=== PATIENT | male | born 1950 | race Caucasian/White ===

== ENCOUNTER 2017-03-22 10:33 | Outpatient (CLI) | payer OTHER, MEDICARE ==
--- NOTE | 2017-03-22 15:44 | RAD ---
CERVICAL SPINE SIX VIEWS: History: Pain. Right sided neck pain radiating to the shoulder and fingers. Comparison: None. FINDINGS: On the AP projection, there are mild degenerative changes of the intraarticular facets. On the open mouth projection, lateral masses of C1 and C2 articulate appropriately. The odontoid process is part ially obscured. On the lateral projection, predental space is normal. In the lateral, neutral and lateral swimmers view, the cervical spine vertebral body heights appear to be maintained. There is mild degenerative disease at C4-5, C5-6, and C6-7. No abnormal alignment. On extension and flexion, no abnormal motion. IMPRESSION: Degenerative change cervical spine. No significant spondylolisthesis. MRI if clinically warranted [facility]te patient's symptoms. POS: [facility]
--- NOTE | 2017-03-22 17:59 | RAD ---
THORACIC SPINE TWO VIEWS: History: 66-year-old male with back pain involving the right side of the neck and shoulder and midback for tw o weeks. FINDINGS: There is some generalized levoscoliosis of the upper lumbar/lower thoracic vertebral column. There a re generalized disc osteophytosis, evidence for spondylosis. No acute compression fracture. No focal bone lesion. IMPRESSION: Thoracic spine spondylosis with minimal levoscoliosis. POS: C
== END 2017-03-22 10:34 | disposition home or self-care (01) ==
LOC: SCSRAD 10:33
PROVIDERS: ATTEND Nurse Practitioner Family
DX: M54.2 Cervicalgia (principal); M54.6 Pain in thoracic spine; M47.892 Other spondylosis, cervical region; M47.894 Other spondylosis, thoracic region
CPT/HCPCS: 72050; 72072

== ENCOUNTER 2017-03-29 09:20 | Outpatient (CLI) | payer OTHER, MEDICARE ==
--- NOTE | 2017-03-29 11:50 | RAD ---
CERVICAL SPINE 4 VIEWS: Date: 03/29/17 HISTORY: M54.2. Neck pain. COMPARISON: Cervical spine radiographs dated 03/22/17. FINDINGS: Mild dextroscoliosis of the cervical spine. This is similar. The open-mouth odontoid view is normal. Moderate degenerative disc space disease from C4-C7. IMPRESSION: Similar appearance from 7 days prior. Degenerative disease cervical spine. POS: [facility]
--- NOTE | 2017-03-29 11:54 | RAD ---
THORACIC SPINE THREE VIEWS: HISTORY: This is a 67-year-old male with neck pain and upper back pain. COMPARISON: 03/22/2017 FINDINGS: Levoscoliosis of the upper lumbar and lower thoracic vertebral column with multilevel disk osteophyto sis of the thoracic vertebral column. No evidence for acute fracture. IMPRESSION: 1. Levoscoliosis of the upper lumbar/lower thoracic vertebral column. 2. Thoracic spondylosis. POS: [facility]
--- NOTE | 2017-03-29 12:59 | MRI ---
MRI CERVICAL SPINE WITHOUT CONTRAST: HISTORY: M54.13 radiculopathy of cervicothoracic spine. COMPARISON: Cervical spine radiograph same day. FINDINGS: The examination is limited due to the patient rotation. Cervical tonsils terminate at the level of t he foramen magnum. The marrow signal of the cervical spine demonstrates some Modic I changes of the inferior end plate of C3, inferior end plate of C4, as well as superior end plate of C5. There is no acute fracture or malalignment of the cervical spine. In the soft tissues, there is mild interspinous edema from the level of C3-C6. Levels are as follows: C2-3: There is mild uncinate process hypertrophy. There is moderate right and mild left neural fora gwendolyn narrowing. The spinal canal is not narrowed. Moderate facet arthropathy on the right. C3-4: Severe degenerative disk space height loss. Circumferential disk bulge. Uncinate process hyp ertrophy. Posterior disk-osteophyte complex. There is moderate to severe bilateral neural foraminal narrowing. There is effacement of the ventral CSF space with the spinal canal measuring approximate ly 6 mm. C4-5: Severe degenerative disk space height loss. The spinal canal is narrowed to approximately 6 m m. Moderate posterior disk-osteophyte complex. There is moderate bilateral facet arthrosis. There is moderate bilateral neural foraminal narrowing. C5-6: Moderate degenerative disk space height loss. There is a posterior disk-osteophyte complex. Mild facet arthrosis. The spinal canal is narrowed to approximately 7 mm. There is moderate to cherry re bilateral neural foraminal narrowing. C6-7: Moderate facet arthrosis. Moderate degenerative disk space height loss. Moderate uncinate pr ocess hypertrophy. The spinal canal is not narrowed. Neural foramina appear to be patent. IMPRESSION: Severely limited exam due to patient rotation. There is a multilevel spondylosis of the cervical spi ne as described above most predominantly from C3-C6 with posterior disk-osteophyte complexes and unci fran process hypertrophy causing narrowing of the spinal canal and neural foramina. POS: [facility]
== END 2017-03-29 09:21 | disposition home or self-care (01) ==
LOC: SCSMRI 09:20
PROVIDERS: ATTEND Anesthesiology Pain Medicine
DX: M54.13 Radiculopathy, cervicothoracic region (principal); M41.85 Other forms of scoliosis, thoracolumbar region; M47.894 Other spondylosis, thoracic region; M47.892 Other spondylosis, cervical region; M50.30 Other cervical disc degeneration, unspecified cervical region
CPT/HCPCS: 72050; 72072; 72141

== ENCOUNTER 2017-03-29 12:03 | Emergency (ER) | payer OTHER, MEDICARE ==
[2017-03-29] MEDS ORDERED: Morphine 4 MG/ML Carpuject ONE (12:33)
[2017-03-29 12:44] LABS: #Eosinphils 0.1 thou/uL (0.0-0.7); #Lymphocytes 1.7 thou/uL (1.20-3.40); #Monocytes 0.6 thou/uL (0.11-0.59); #Neutrophils 3.7 thou/uL (1.40-6.50); %Basophils 0.6 % (0.0-1.0); %Lymphocytes 27.3 % (21.0-51.0); %Monocytes 9.2 % (0.0-10.0); Hematocrit 36.9 % (42.0-52.0); Red Blood Cell (RBC) Count 3.79 mill/uL (4.70-6.10)
[2017-03-29 12:54] LABS: ALT (SGPT) 30 U/L (8-55); AST (SGOT) 27 U/L (5-34); Alkaline Phosphatase 64 U/L (40-150); Anion Gap 14 mmol/L (10-20); BUN (Urea Nitrogen) 16 mg/dL (8.4-25.7); Bilirubin, Total 0.2 mg/dL (0.2-1.2); CK (CPK) 125 U/L (30-200); Calc. Creatinine Clearance 0 mL/min (70-130); Carbon Dioxide 24 mmol/L (23-31); Chloride 104 mmol/L (98-107); Estimated GFR-MDRD Greater than 90; Globulin 3.5 g/dL (2.4-3.5); Lipase 22 U/L (8-78); Protein, Total 7.4 g/dL (5.8-8.1)
[2017-03-29 12:57] LABS: Troponin I 0.023 ng/mL (< 0.028)
[2017-03-29] MEDS ORDERED: Dexamethasone 10 MG/ML VIAL ONE (13:02)
--- NOTE | 2017-03-29 13:20 | RAD ---
AP VIEW CHEST: HISTORY: Right-sided chest pain. FINDINGS: AP view chest is obtained. The lungs are well aerated. No evidence of active intrathoracic disease is seen. No evidence of eff usion, pneumonia, or pneumothorax is seen. IMPRESSION: Unremarkable anterior-posterior view chest. POS: C
== END 2017-03-29 13:14 | disposition home or self-care (01) ==
LOC: SCSER 12:03
DX: M54.12 Radiculopathy, cervical region (principal); Z86.73 Personal history of transient ischemic attack (TIA), and cerebral infarction without residual deficits
CPT/HCPCS: 36415; 71010; 72050; 72072; 72141; 80053; 82553; 83690; 84484; 85025; 93005; 96374; 96375; 96376; J1100; J2270

== ENCOUNTER 2020-12-26 06:14 | Inpatient (IN) | payer OTHER, MEDICARE ==
[2020-12-26 06:39] LABS: #Lymphocytes 2.2 thou/uL (1.20-3.40); #Monocytes 0.5 thou/uL (0.11-0.59); #Neutrophils 4.5 thou/uL (1.40-6.50); %Basophils 0.1 % (0.0-1.0); %Eosinophils 0.1 % (0.0-10.0); %Lymphocytes 30.7 % (21.0-51.0); %Monocytes 7.4 % (0.0-10.0); %Neutrophils 61.8 % (42.0-75.0); Hemoglobin 15.2 g/dL (14.0-18.0); Mean Corpuscular Hemoglobin 34.2 pg (27.0-31.0); Mean Corpuscular Volume 97.8 fL (78.0-98.0); Mean Platelet Volume 8.9 fL (7.4-10.4); Platelet Count 160 thou/uL (130-400); RBC Distribution Width 11.3 % (11.5-14.5); Red Blood Cell (RBC) Count 4.44 mill/uL (4.70-6.10); White Blood Cell (WBC) Count 7.3 thou/uL (4.8-10.8)
[2020-12-26 07:01] LABS: ALT (SGPT) 43 U/L (8-55); AST (SGOT) 66 U/L (5-34); Albumin 3.7 g/dL (3.4-4.8); Alkaline Phosphatase 47 U/L (40-110); Anion Gap 14 mmol/L (10-20); BUN (Urea Nitrogen) 21 mg/dL (8.4-25.7); Bilirubin, Total 0.6 mg/dL (0.2-1.2); Calc. Creatinine Clearance 0 mL/min (70-130); Calcium 8.4 mg/dL (7.8-10.44); Carbon Dioxide 25 mmol/L (23-31); Chloride 96 mmol/L (98-107); Globulin 4.3 g/dL (2.4-3.5); Glucose 135 mg/dL (80-115); Potassium 4.2 mmol/L (3.5-5.1); Sodium 131 mmol/L (136-145)
[2020-12-26] MEDS ORDERED: Ondansetron PF 4 MG/2 ML Vial ONE (07:11)
[2020-12-26] MEDS ORDERED: Acetaminophen 500 MG TAB ONE (07:12)
[2020-12-26 07:48] LABS: Lipase 23 U/L (8-78); Magnesium 1.9 mg/dL (1.6-2.6)
[2020-12-26] MEDS ORDERED: Enoxaparin Sodium 40 MG/0.4 ML SYRINGE SC SCH (11:45)
[2020-12-26] MEDS: Sodium Chloride 0.9% 1,000 ML IV SCH (12:28)
[2020-12-26] MEDS: Acetaminophen 325 MG TAB PO PRN (17:53)
[2020-12-26] MEDS: Divalproex Sodium DR 500 MG TAB PO SCH (21:20)
[2020-12-27] MEDS: Benzonatate 100 MG CAP PO PRN (00:10)
[2020-12-27] MEDS: Acetaminophen 325 MG TAB PO PRN ×3 (00:10→23:24)
[2020-12-27] MEDS: Sodium Chloride 0.9% 1,000 ML IV SCH ×2 (03:31→16:36)
[2020-12-27 04:52] LABS: #Lymphocytes 1.7 thou/uL (1.20-3.40); #Monocytes 0.3 thou/uL (0.11-0.59); #Neutrophils 1.9 thou/uL (1.40-6.50); %Basophils 0.7 % (0.0-1.0); %Eosinophils 0.1 % (0.0-10.0); %Lymphocytes 43.1 % (21.0-51.0); %Monocytes 6.6 % (0.0-10.0); %Neutrophils 49.6 % (42.0-75.0); Hemoglobin 13.4 g/dL (14.0-18.0); Mean Corpuscular HGB CONC 35.4 g/dL (32.0-36.0); Mean Corpuscular Hemoglobin 34.9 pg (27.0-31.0); Mean Corpuscular Volume 98.3 fL (78.0-98.0); Platelet Count 126 thou/uL (130-400); RBC Distribution Width 11.2 % (11.5-14.5); Red Blood Cell (RBC) Count 3.83 mill/uL (4.70-6.10); White Blood Cell (WBC) Count 3.9 thou/uL (4.8-10.8)
[2020-12-27 05:28] LABS: Anion Gap 11 mmol/L (10-20); BUN (Urea Nitrogen) 13 mg/dL (8.4-25.7); Calc. Creatinine Clearance 135 mL/min (70-130); Calcium 7.5 mg/dL (7.8-10.44); Carbon Dioxide 24 mmol/L (23-31); Chloride 101 mmol/L (98-107); Glucose 94 mg/dL (80-115); Potassium 3.8 mmol/L (3.5-5.1); Sodium 132 mmol/L (136-145)
[2020-12-27] MEDS: Enoxaparin Sodium 40 MG/0.4 ML SYRINGE SC SCH (09:59)
[2020-12-27] MEDS: Timolol 0.5% Ophth Soln 5 ml Bottle EA EYE SCH (10:00)
[2020-12-27] MEDS: Divalproex Sodium DR 500 MG TAB PO SCH ×2 (10:00→21:41)
[2020-12-27] MEDS: Clopidogrel Bisulfate 75 MG TAB PO SCH (10:01)
[2020-12-27] MEDS: Loperamide HCl 2 MG CAP PO PRN (21:40)
[2020-12-28] MEDS: Sodium Chloride 0.9% 1,000 ML IV SCH ×2 (06:41→15:59)
[2020-12-28] MEDS: Clopidogrel Bisulfate 75 MG TAB PO SCH (08:47)
[2020-12-28] MEDS: Enoxaparin Sodium 40 MG/0.4 ML SYRINGE SC SCH (08:47)
[2020-12-28] MEDS: Divalproex Sodium DR 500 MG TAB PO SCH ×2 (08:47→20:04)
[2020-12-28] MEDS: Timolol 0.5% Ophth Soln 5 ml Bottle EA EYE SCH (08:48)
[2020-12-28] MEDS: Acetaminophen 325 MG TAB PO PRN ×3 (08:56→20:34)
[2020-12-28] MEDS ORDERED: Zinc Sulfate 220 MG CAP PO SCH (11:45)
[2020-12-28] MEDS ORDERED: Ascorbic Acid 500 mg Chewable Tablet PO SCH (11:45)
[2020-12-28] MEDS: hydrALAZINE 20 MG/ML VIAL SLOW IVP PRN (16:00)
[2020-12-28] MEDS ORDERED: Ketorolac Tromethamine 30 MG/ML VIAL IVP PRN (17:27)
[2020-12-28] MEDS: Benzonatate 100 MG CAP PO PRN (20:04)
[2020-12-28] MEDS: Cholecalciferol 1,000 UNITS (25 MCG) TAB PO SCH (20:04)
[2020-12-29] MEDS: Acetaminophen 325 MG TAB PO PRN ×2 (04:02→12:37)
[2020-12-29] MEDS: Benzonatate 100 MG CAP PO PRN (04:03)
[2020-12-29] MEDS: hydrALAZINE 20 MG/ML VIAL SLOW IVP PRN ×2 (04:04→12:37)
[2020-12-29] MEDS: Zinc Sulfate 220 MG CAP PO SCH (09:14)
[2020-12-29] MEDS: Clopidogrel Bisulfate 75 MG TAB PO SCH (09:14)
[2020-12-29] MEDS: Ascorbic Acid 500 mg Chewable Tablet PO SCH (09:14)
[2020-12-29] MEDS: Divalproex Sodium DR 500 MG TAB PO SCH ×2 (09:14→20:32)
[2020-12-29] MEDS: Sodium Chloride 0.9% 1,000 ML IV SCH ×2 (09:24→22:28)
[2020-12-29] MEDS: Timolol 0.5% Ophth Soln 5 ml Bottle EA EYE SCH (09:44)
[2020-12-29] MEDS: Enoxaparin Sodium 40 MG/0.4 ML SYRINGE SC SCH ×2 (10:22→20:31)
[2020-12-29] MEDS: Loperamide HCl 2 MG CAP PO PRN (12:37)
[2020-12-29] MEDS ORDERED: Ivermectin 3 MG TAB PO SCH (16:45)
[2020-12-29] MEDS ORDERED: REMDESIVIR 200 MG in Sodium Chloride 0.9% 250 ML 210 ML IV SCH (18:00)
[2020-12-29] MEDS: Dexamethasone 10 MG/ML VIAL SLOW IVP SCH (20:32)
[2020-12-29] MEDS: Cholecalciferol 1,000 UNITS (25 MCG) TAB PO SCH (20:32)
[2020-12-29] MEDS: Colchicine 0.6 MG TAB PO SCH (20:32)
[2020-12-30] MEDS: Timolol 0.5% Ophth Soln 5 ml Bottle EA EYE SCH (08:50)
[2020-12-30] MEDS: Zinc Sulfate 220 MG CAP PO SCH (08:50)
[2020-12-30] MEDS: Divalproex Sodium DR 500 MG TAB PO SCH ×2 (08:50→22:00)
[2020-12-30] MEDS: Ivermectin 3 MG TAB PO SCH (08:50)
[2020-12-30] MEDS: Ascorbic Acid 500 mg Chewable Tablet PO SCH (08:50)
[2020-12-30] MEDS: Enoxaparin Sodium 40 MG/0.4 ML SYRINGE SC SCH ×2 (08:50→22:02)
[2020-12-30] MEDS: Clopidogrel Bisulfate 75 MG TAB PO SCH (08:50)
[2020-12-30] MEDS: Dexamethasone 10 MG/ML VIAL SLOW IVP SCH ×2 (08:51→22:01)
[2020-12-30] MEDS: Colchicine 0.6 MG TAB PO SCH ×2 (08:57→22:00)
[2020-12-30] MEDS: Sodium Chloride 0.9% 1,000 ML IV SCH (11:54)
[2020-12-30] MEDS ORDERED: Digoxin 0.5 MG/2 ML AMP SLOW IVP SCH (15:00)
[2020-12-30] MEDS: cefTRIAXone\\ROCEPHIN 2 GM in Sodium Chloride 0.9% 100 ML IVPB SCH (15:09)
[2020-12-30] MEDS: REMDESIVIR 100 MG in Sodium Chloride 0.9% 250 ML 230 ML IV SCH (16:43)
[2020-12-30] MEDS: Diltiazem 125 MG in Sodium Chloride 0.9% 100 ML IVPB SCH (17:29)
[2020-12-30] MEDS: Cholecalciferol 1,000 UNITS (25 MCG) TAB PO SCH (22:00)
[2020-12-31] MEDS: Sodium Chloride 0.9% 1,000 ML IV SCH ×4 (04:07→20:58)
[2020-12-31] MEDS: Diltiazem 125 MG in Sodium Chloride 0.9% 100 ML IVPB SCH (05:34)
[2020-12-31] MEDS: Divalproex Sodium DR 500 MG TAB PO SCH ×2 (09:05→20:51)
[2020-12-31] MEDS: Clopidogrel Bisulfate 75 MG TAB PO SCH (09:05)
[2020-12-31] MEDS: Ivermectin 3 MG TAB PO SCH (09:05)
[2020-12-31] MEDS: Zinc Sulfate 220 MG CAP PO SCH (09:05)
[2020-12-31] MEDS: Enoxaparin Sodium 40 MG/0.4 ML SYRINGE SC SCH ×2 (09:06→20:50)
[2020-12-31] MEDS: Timolol 0.5% Ophth Soln 5 ml Bottle EA EYE SCH (09:06)
[2020-12-31] MEDS: Dexamethasone 10 MG/ML VIAL SLOW IVP SCH ×2 (09:06→20:51)
[2020-12-31] MEDS: Ascorbic Acid 500 mg Chewable Tablet PO SCH (09:09)
[2020-12-31] MEDS: Colchicine 0.6 MG TAB PO SCH ×2 (09:09→20:51)
[2020-12-31] MEDS: Benzonatate 100 MG CAP PO PRN (09:11)
[2020-12-31] MEDS: cefTRIAXone\\ROCEPHIN 2 GM in Sodium Chloride 0.9% 100 ML IVPB SCH (14:09)
[2020-12-31] MEDS ORDERED: Cepastat Lozenges 1 LOZ PO PRN (15:31)
[2020-12-31] MEDS: REMDESIVIR 100 MG in Sodium Chloride 0.9% 250 ML 230 ML IV SCH (17:08)
[2020-12-31] MEDS: Cholecalciferol 1,000 UNITS (25 MCG) TAB PO SCH (20:51)
[2021-01-01] MEDS: Divalproex Sodium DR 500 MG TAB PO SCH ×2 (09:03→20:01)
[2021-01-01] MEDS: Ascorbic Acid 500 mg Chewable Tablet PO SCH (09:03)
[2021-01-01] MEDS: Timolol 0.5% Ophth Soln 5 ml Bottle EA EYE SCH (09:03)
[2021-01-01] MEDS: Zinc Sulfate 220 MG CAP PO SCH (09:03)
[2021-01-01] MEDS: Enoxaparin Sodium 40 MG/0.4 ML SYRINGE SC SCH ×2 (09:03→20:01)
[2021-01-01] MEDS: Clopidogrel Bisulfate 75 MG TAB PO SCH (09:03)
[2021-01-01] MEDS: Ivermectin 3 MG TAB PO SCH (09:05)
[2021-01-01] MEDS: Dexamethasone 10 MG/ML VIAL SLOW IVP SCH ×2 (09:05→20:00)
[2021-01-01] MEDS: hydrALAZINE 20 MG/ML VIAL SLOW IVP PRN ×2 (09:08→14:41)
[2021-01-01] MEDS: Colchicine 0.6 MG TAB PO SCH ×2 (09:11→20:00)
[2021-01-01] MEDS: cefTRIAXone\\ROCEPHIN 2 GM in Sodium Chloride 0.9% 100 ML IVPB SCH (14:40)
[2021-01-01] MEDS: REMDESIVIR 100 MG in Sodium Chloride 0.9% 250 ML 230 ML IV SCH (17:28)
[2021-01-01] MEDS: Sodium Chloride 0.9% 1,000 ML IV SCH (17:29)
[2021-01-01] MEDS: Cholecalciferol 1,000 UNITS (25 MCG) TAB PO SCH (20:01)
[2021-01-02] MEDS: Sodium Chloride 0.9% 1,000 ML IV SCH ×2 (00:57→14:19)
[2021-01-02] MEDS: hydrALAZINE 20 MG/ML VIAL SLOW IVP PRN ×2 (05:48→11:35)
[2021-01-02 05:57] LABS: ALT (SGPT) 34 U/L (8-55); AST (SGOT) 60 U/L (5-34); Albumin 2.4 g/dL (3.4-4.8); Alkaline Phosphatase 42 U/L (40-110); Anion Gap 12 mmol/L (10-20); BUN (Urea Nitrogen) 14 mg/dL (8.4-25.7); Bilirubin, Total 0.7 mg/dL (0.2-1.2); Calc. Creatinine Clearance 150 mL/min (70-130); Calcium 7.8 mg/dL (7.8-10.44); Carbon Dioxide 22 mmol/L (23-31); Chloride 109 mmol/L (98-107); Globulin 3.8 g/dL (2.4-3.5); Glucose 122 mg/dL (80-115); Potassium 3.3 mmol/L (3.5-5.1); Protein, Total 6.2 g/dL (5.8-8.1); Sodium 140 mmol/L (136-145)
[2021-01-02] MEDS: Enoxaparin Sodium 40 MG/0.4 ML SYRINGE SC SCH ×2 (09:07→21:11)
[2021-01-02] MEDS: Divalproex Sodium DR 500 MG TAB PO SCH ×2 (09:08→21:11)
[2021-01-02] MEDS: Clopidogrel Bisulfate 75 MG TAB PO SCH (09:08)
[2021-01-02] MEDS: Zinc Sulfate 220 MG CAP PO SCH (09:08)
[2021-01-02] MEDS: Ascorbic Acid 500 mg Chewable Tablet PO SCH (10:28)
[2021-01-02] MEDS: Dexamethasone 10 MG/ML VIAL SLOW IVP SCH ×2 (10:28→21:11)
[2021-01-02] MEDS: Timolol 0.5% Ophth Soln 5 ml Bottle EA EYE SCH (10:28)
[2021-01-02] MEDS: Ivermectin 3 MG TAB PO SCH (10:29)
[2021-01-02] MEDS: Colchicine 0.6 MG TAB PO SCH ×2 (10:52→21:11)
[2021-01-02] MEDS: cefTRIAXone\\ROCEPHIN 2 GM in Sodium Chloride 0.9% 100 ML IVPB SCH (14:41)
[2021-01-02] MEDS: REMDESIVIR 100 MG in Sodium Chloride 0.9% 250 ML 230 ML IV SCH (17:08)
[2021-01-02] MEDS: Cholecalciferol 1,000 UNITS (25 MCG) TAB PO SCH (21:11)
[2021-01-02] MEDS: Loperamide HCl 2 MG CAP PO PRN (21:11)
[2021-01-03] MEDS: Sodium Chloride 0.9% 1,000 ML IV SCH ×2 (03:00→16:18)
[2021-01-03 04:35] LABS: #Eosinphils 0.1 thou/uL (0.0-0.7); #Lymphocytes 1.2 thou/uL (1.20-3.40); #Monocytes 0.5 thou/uL (0.11-0.59); #Neutrophils 4.6 thou/uL (1.40-6.50); %Basophils 0.1 % (0.0-1.0); %Eosinophils 1.5 % (0.0-10.0); %Lymphocytes 18.8 % (21.0-51.0); %Monocytes 7.3 % (0.0-10.0); %Neutrophils 72.2 % (42.0-75.0); Hemoglobin 12.5 g/dL (14.0-18.0); Mean Corpuscular HGB CONC 34.8 g/dL (32.0-36.0); Mean Corpuscular Volume 97.8 fL (78.0-98.0); Mean Platelet Volume 8.1 fL (7.4-10.4); Platelet Count 316 thou/uL (130-400); RBC Distribution Width 12.1 % (11.5-14.5); Red Blood Cell (RBC) Count 3.66 mill/uL (4.70-6.10); White Blood Cell (WBC) Count 6.4 thou/uL (4.8-10.8)
[2021-01-03 04:55] LABS: ALT (SGPT) 36 U/L (8-55); AST (SGOT) 56 U/L (5-34); Albumin 2.6 g/dL (3.4-4.8); Alkaline Phosphatase 51 U/L (40-110); Anion Gap 11 mmol/L (10-20); BUN (Urea Nitrogen) 11 mg/dL (8.4-25.7); Bilirubin, Total 0.8 mg/dL (0.2-1.2); CRP (Inflammatory) 5.86 mg/dL (= or < 0.5); Calc. Creatinine Clearance 153 mL/min (70-130); Calcium 7.8 mg/dL (7.8-10.44); Carbon Dioxide 26 mmol/L (23-31); Chloride 106 mmol/L (98-107); Globulin 3.7 g/dL (2.4-3.5); Glucose 130 mg/dL (80-115); Protein, Total 6.3 g/dL (5.8-8.1); Sodium 140 mmol/L (136-145)
[2021-01-03] MEDS: hydrALAZINE 20 MG/ML VIAL SLOW IVP PRN (05:26)
[2021-01-03] MEDS ORDERED: Electrolyte Replacement Protocol 1 EACH FS PRN (09:00)
[2021-01-03] MEDS ORDERED: Potassium Chloride 20 MEQ TAB PO SCH ×2 (09:00→17:00)
[2021-01-03] MEDS: Ascorbic Acid 500 mg Chewable Tablet PO SCH (09:33)
[2021-01-03] MEDS: Clopidogrel Bisulfate 75 MG TAB PO SCH (09:34)
[2021-01-03] MEDS: Enoxaparin Sodium 40 MG/0.4 ML SYRINGE SC SCH ×2 (09:34→21:02)
[2021-01-03] MEDS: Divalproex Sodium DR 500 MG TAB PO SCH ×2 (09:34→21:02)
[2021-01-03] MEDS: Dexamethasone 10 MG/ML VIAL SLOW IVP SCH (09:34)
[2021-01-03] MEDS: Timolol 0.5% Ophth Soln 5 ml Bottle EA EYE SCH (09:35)
[2021-01-03] MEDS: Ivermectin 3 MG TAB PO SCH (09:35)
[2021-01-03 09:36] LABS: Magnesium 1.9 mg/dL (1.6-2.6)
[2021-01-03] MEDS: Zinc Sulfate 220 MG CAP PO SCH (09:36)
[2021-01-03] MEDS: Colchicine 0.6 MG TAB PO SCH ×2 (09:39→21:02)
[2021-01-03] MEDS ORDERED: Magnesium 2 GM/50 ML 2 GM in Premix Bag 1 BAG IVPB SCH (10:15)
[2021-01-03] MEDS: cefTRIAXone\\ROCEPHIN 2 GM in Sodium Chloride 0.9% 100 ML IVPB SCH (15:19)
[2021-01-03] MEDS ORDERED: Albuterol 200 PUFF (6.7GM INHALER) INH PRN (17:26)
[2021-01-03] MEDS: Albuterol 200 PUFF (6.7GM INHALER) INH SCH ×2 (18:58→21:02)
[2021-01-03] MEDS: Cholecalciferol 1,000 UNITS (25 MCG) TAB PO SCH (21:02)
[2021-01-04] MEDS: Albuterol 200 PUFF (6.7GM INHALER) INH SCH ×6 (02:24→21:36)
[2021-01-04 05:49] LABS: #Eosinphils 0.1 thou/uL (0.0-0.7); #Lymphocytes 2.5 thou/uL (1.20-3.40); #Monocytes 0.7 thou/uL (0.11-0.59); %Basophils 0.2 % (0.0-1.0); %Eosinophils 1.5 % (0.0-10.0); %Lymphocytes 29.6 % (21.0-51.0); %Monocytes 8.4 % (0.0-10.0); %Neutrophils 60.4 % (42.0-75.0); Hemoglobin 13.6 g/dL (14.0-18.0); Mean Corpuscular HGB CONC 34.7 g/dL (32.0-36.0); Mean Corpuscular Hemoglobin 34.2 pg (27.0-31.0); Mean Corpuscular Volume 98.5 fL (78.0-98.0); Mean Platelet Volume 8.4 fL (7.4-10.4); Platelet Count 331 thou/uL (130-400); RBC Distribution Width 12.3 % (11.5-14.5); Red Blood Cell (RBC) Count 3.97 mill/uL (4.70-6.10); White Blood Cell (WBC) Count 8.3 thou/uL (4.8-10.8)
[2021-01-04 06:03] LABS: ALT (SGPT) 39 U/L (8-55); AST (SGOT) 65 U/L (5-34); Albumin 2.6 g/dL (3.4-4.8); Alkaline Phosphatase 58 U/L (40-110); Anion Gap 13 mmol/L (10-20); BUN (Urea Nitrogen) 12 mg/dL (8.4-25.7); Bilirubin, Total 0.9 mg/dL (0.2-1.2); Calc. Creatinine Clearance 153 mL/min (70-130); Calcium 7.9 mg/dL (7.8-10.44); Carbon Dioxide 23 mmol/L (23-31); Chloride 103 mmol/L (98-107); Globulin 4.1 g/dL (2.4-3.5); Glucose 105 mg/dL (80-115); Magnesium 1.7 mg/dL (1.6-2.6); Potassium 3.3 mmol/L (3.5-5.1); Protein, Total 6.7 g/dL (5.8-8.1); Sodium 136 mmol/L (136-145)
[2021-01-04] MEDS ORDERED: Magnesium 2 GM/50 ML 2 GM in Premix Bag 1 BAG IVPB SCH (06:30)
[2021-01-04] MEDS ORDERED: Potassium Chloride 20 MEQ TAB PO SCH (06:45)
[2021-01-04] MEDS: Ascorbic Acid 500 mg Chewable Tablet PO SCH (09:04)
[2021-01-04] MEDS: Divalproex Sodium DR 500 MG TAB PO SCH ×2 (09:04→21:27)
[2021-01-04] MEDS: Dexamethasone 10 MG/ML VIAL SLOW IVP SCH (09:05)
[2021-01-04] MEDS: Colchicine 0.6 MG TAB PO SCH ×2 (09:05→21:28)
[2021-01-04] MEDS: Zinc Sulfate 220 MG CAP PO SCH (09:05)
[2021-01-04] MEDS: Clopidogrel Bisulfate 75 MG TAB PO SCH (09:05)
[2021-01-04] MEDS: Ivermectin 3 MG TAB PO SCH (09:06)
[2021-01-04] MEDS: Enoxaparin Sodium 40 MG/0.4 ML SYRINGE SC SCH ×2 (09:06→22:01)
[2021-01-04] MEDS: Timolol 0.5% Ophth Soln 5 ml Bottle EA EYE SCH (09:07)
[2021-01-04] MEDS: cefTRIAXone\\ROCEPHIN 2 GM in Sodium Chloride 0.9% 100 ML IVPB SCH (14:44)
[2021-01-04] MEDS: Cholecalciferol 1,000 UNITS (25 MCG) TAB PO SCH (21:28)
[2021-01-04] MEDS: Doxycycline 100 MG CAP PO SCH (21:28)
[2021-01-05 05:35] LABS: #Eosinphils 0.1 thou/uL (0.0-0.7); #Lymphocytes 2.5 thou/uL (1.20-3.40); #Monocytes 0.7 thou/uL (0.11-0.59); #Neutrophils 4.3 thou/uL (1.40-6.50); %Basophils 0.4 % (0.0-1.0); %Eosinophils 0.9 % (0.0-10.0); %Lymphocytes 33.4 % (21.0-51.0); %Monocytes 9.2 % (0.0-10.0); %Neutrophils 56.1 % (42.0-75.0); Hemoglobin 12.7 g/dL (14.0-18.0); Mean Corpuscular Hemoglobin 34.6 pg (27.0-31.0); Mean Corpuscular Volume 98.7 fL (78.0-98.0); Mean Platelet Volume 8.2 fL (7.4-10.4); Platelet Count 324 thou/uL (130-400); RBC Distribution Width 12.4 % (11.5-14.5); Red Blood Cell (RBC) Count 3.68 mill/uL (4.70-6.10); White Blood Cell (WBC) Count 7.6 thou/uL (4.8-10.8)
[2021-01-05 05:57] LABS: CRP (Inflammatory) 5.94 mg/dL (= or < 0.5); Magnesium 2.1 mg/dL (1.6-2.6)
[2021-01-05 06:02] LABS: ALT (SGPT) 34 U/L (8-55); AST (SGOT) 44 U/L (5-34); Albumin 2.4 g/dL (3.4-4.8); Alkaline Phosphatase 57 U/L (40-110); Anion Gap 7 mmol/L (10-20); BUN (Urea Nitrogen) 19 mg/dL (8.4-25.7); Bilirubin, Total 0.7 mg/dL (0.2-1.2); Calc. Creatinine Clearance 153 mL/min (70-130); Calcium 7.9 mg/dL (7.8-10.44); Carbon Dioxide 28 mmol/L (23-31); Chloride 105 mmol/L (98-107); Globulin 3.7 g/dL (2.4-3.5); Glucose 102 mg/dL (80-115); Potassium 3.2 mmol/L (3.5-5.1); Protein, Total 6.1 g/dL (5.8-8.1); Sodium 137 mmol/L (136-145)
[2021-01-05 06:05] LABS: Phosphorus 4.2 mg/dL (2.3-4.7)
[2021-01-05] MEDS ORDERED: Potassium Chloride 20 MEQ TAB PO SCH (06:30)
[2021-01-05] MEDS: Timolol 0.5% Ophth Soln 5 ml Bottle EA EYE SCH (09:34)
[2021-01-05] MEDS: Albuterol 200 PUFF (6.7GM INHALER) INH SCH ×4 (10:27→21:33)
[2021-01-05] MEDS: Enoxaparin Sodium 40 MG/0.4 ML SYRINGE SC SCH ×2 (10:47→21:32)
[2021-01-05] MEDS: Ascorbic Acid 500 mg Chewable Tablet PO SCH (10:47)
[2021-01-05] MEDS: Clopidogrel Bisulfate 75 MG TAB PO SCH (10:47)
[2021-01-05] MEDS: Ivermectin 3 MG TAB PO SCH (10:49)
[2021-01-05] MEDS: Doxycycline 100 MG CAP PO SCH ×2 (10:50→21:32)
[2021-01-05] MEDS: Divalproex Sodium DR 500 MG TAB PO SCH ×2 (10:50→21:32)
[2021-01-05] MEDS: Dexamethasone 10 MG/ML VIAL SLOW IVP SCH (10:56)
[2021-01-05] MEDS: Colchicine 0.6 MG TAB PO SCH (11:20)
[2021-01-05] MEDS: Zinc Sulfate 220 MG CAP PO SCH (18:38)
[2021-01-05] MEDS: hydrALAZINE 20 MG/ML VIAL SLOW IVP PRN (18:44)
[2021-01-05] MEDS: Cholecalciferol 1,000 UNITS (25 MCG) TAB PO SCH (21:32)
[2021-01-06 05:19] LABS: #Eosinphils 0.1 thou/uL (0.0-0.7); #Lymphocytes 2.5 thou/uL (1.20-3.40); #Monocytes 0.7 thou/uL (0.11-0.59); #Neutrophils 4.1 thou/uL (1.40-6.50); %Basophils 0.3 % (0.0-1.0); %Lymphocytes 33.6 % (21.0-51.0); %Monocytes 9.2 % (0.0-10.0); %Neutrophils 55.9 % (42.0-75.0); Hemoglobin 12.7 g/dL (14.0-18.0); Mean Corpuscular HGB CONC 33.9 g/dL (32.0-36.0); Mean Platelet Volume 8.4 fL (7.4-10.4); Platelet Count 347 thou/uL (130-400); RBC Distribution Width 12.7 % (11.5-14.5); Red Blood Cell (RBC) Count 3.75 mill/uL (4.70-6.10); White Blood Cell (WBC) Count 7.4 thou/uL (4.8-10.8)
[2021-01-06 05:34] LABS: Anion Gap 11 mmol/L (10-20); BUN (Urea Nitrogen) 19 mg/dL (8.4-25.7); CRP (Inflammatory) 3.61 mg/dL (= or < 0.5); Calc. Creatinine Clearance 170 mL/min (70-130); Calcium 8.3 mg/dL (7.8-10.44); Carbon Dioxide 26 mmol/L (23-31); Chloride 103 mmol/L (98-107); Glucose 100 mg/dL (80-115); Potassium 3.6 mmol/L (3.5-5.1); Sodium 136 mmol/L (136-145)
[2021-01-06] MEDS: Enoxaparin Sodium 40 MG/0.4 ML SYRINGE SC SCH ×2 (09:27→20:05)
[2021-01-06] MEDS: Clopidogrel Bisulfate 75 MG TAB PO SCH (09:28)
[2021-01-06] MEDS: hydrALAZINE 25 MG TAB PO SCH ×3 (09:28→20:05)
[2021-01-06] MEDS: Ascorbic Acid 500 mg Chewable Tablet PO SCH (09:29)
[2021-01-06] MEDS: Doxycycline 100 MG CAP PO SCH ×2 (09:30→20:05)
[2021-01-06] MEDS: Zinc Sulfate 220 MG CAP PO SCH (09:30)
[2021-01-06] MEDS: Divalproex Sodium DR 500 MG TAB PO SCH ×2 (09:31→20:04)
[2021-01-06] MEDS: Dexamethasone 10 MG/ML VIAL SLOW IVP SCH (09:32)
[2021-01-06] MEDS: Timolol 0.5% Ophth Soln 5 ml Bottle EA EYE SCH (09:33)
[2021-01-06] MEDS: Albuterol 200 PUFF (6.7GM INHALER) INH SCH ×4 (17:00→20:06)
[2021-01-06] MEDS: Cholecalciferol 1,000 UNITS (25 MCG) TAB PO SCH (20:04)
[2021-01-07 05:35] LABS: #Eosinphils 0.1 thou/uL (0.0-0.7); #Lymphocytes 2.3 thou/uL (1.20-3.40); #Monocytes 0.7 thou/uL (0.11-0.59); #Neutrophils 3.4 thou/uL (1.40-6.50); %Basophils 0.4 % (0.0-1.0); %Eosinophils 1.5 % (0.0-10.0); %Lymphocytes 35.2 % (21.0-51.0); %Monocytes 11.1 % (0.0-10.0); %Neutrophils 51.8 % (42.0-75.0); Hemoglobin 12.7 g/dL (14.0-18.0); Mean Corpuscular HGB CONC 34.1 g/dL (32.0-36.0); Mean Corpuscular Hemoglobin 34.3 pg (27.0-31.0); Mean Platelet Volume 8.5 fL (7.4-10.4); Platelet Count 314 thou/uL (130-400); RBC Distribution Width 12.9 % (11.5-14.5); White Blood Cell (WBC) Count 6.6 thou/uL (4.8-10.8)
[2021-01-07 05:55] LABS: Anion Gap 11 mmol/L (10-20); BUN (Urea Nitrogen) 17 mg/dL (8.4-25.7); Calc. Creatinine Clearance 155 mL/min (70-130); Calcium 8.3 mg/dL (7.8-10.44); Carbon Dioxide 27 mmol/L (23-31); Chloride 102 mmol/L (98-107); Glucose 107 mg/dL (80-115); Potassium 3.7 mmol/L (3.5-5.1); Sodium 136 mmol/L (136-145)
[2021-01-07] MEDS ORDERED: Potassium Chloride 20 MEQ TAB PO SCH (08:45)
[2021-01-07] MEDS: Zinc Sulfate 220 MG CAP PO SCH (08:51)
[2021-01-07] MEDS: Clopidogrel Bisulfate 75 MG TAB PO SCH (08:51)
[2021-01-07] MEDS: Doxycycline 100 MG CAP PO SCH ×2 (08:51→20:28)
[2021-01-07] MEDS: Divalproex Sodium DR 500 MG TAB PO SCH ×2 (08:51→20:28)
[2021-01-07] MEDS: Ascorbic Acid 500 mg Chewable Tablet PO SCH (08:51)
[2021-01-07] MEDS: hydrALAZINE 25 MG TAB PO SCH ×3 (08:51→20:28)
[2021-01-07] MEDS: Dexamethasone 10 MG/ML VIAL SLOW IVP SCH (08:52)
[2021-01-07] MEDS: Enoxaparin Sodium 40 MG/0.4 ML SYRINGE SC SCH ×2 (08:52→20:27)
[2021-01-07] MEDS: Albuterol 200 PUFF (6.7GM INHALER) INH SCH ×6 (08:53→20:29)
[2021-01-07] MEDS: Timolol 0.5% Ophth Soln 5 ml Bottle EA EYE SCH (08:54)
[2021-01-07] MEDS: Cholecalciferol 1,000 UNITS (25 MCG) TAB PO SCH (20:28)
[2021-01-08] MEDS: Albuterol 200 PUFF (6.7GM INHALER) INH SCH ×4 (08:18→20:45)
[2021-01-08] MEDS: Timolol 0.5% Ophth Soln 5 ml Bottle EA EYE SCH (08:19)
[2021-01-08] MEDS: Ascorbic Acid 500 mg Chewable Tablet PO SCH (08:20)
[2021-01-08] MEDS: Divalproex Sodium DR 500 MG TAB PO SCH ×2 (08:20→20:45)
[2021-01-08] MEDS: Dexamethasone 10 MG/ML VIAL SLOW IVP SCH (08:20)
[2021-01-08] MEDS: hydrALAZINE 25 MG TAB PO SCH ×3 (08:20→20:45)
[2021-01-08] MEDS: Doxycycline 100 MG CAP PO SCH ×2 (08:20→20:45)
[2021-01-08] MEDS: Zinc Sulfate 220 MG CAP PO SCH (08:20)
[2021-01-08] MEDS: Enoxaparin Sodium 40 MG/0.4 ML SYRINGE SC SCH ×2 (08:21→20:45)
[2021-01-08] MEDS: Clopidogrel Bisulfate 75 MG TAB PO SCH (08:21)
[2021-01-08] MEDS: Cholecalciferol 1,000 UNITS (25 MCG) TAB PO SCH (20:45)
[2021-01-09 04:57] LABS: #Lymphocytes 2.7 thou/uL (1.20-3.40); #Monocytes 0.8 thou/uL (0.11-0.59); #Neutrophils 4.2 thou/uL (1.40-6.50); %Basophils 0.5 % (0.0-1.0); %Eosinophils 0.5 % (0.0-10.0); %Lymphocytes 34.5 % (21.0-51.0); %Monocytes 10.5 % (0.0-10.0); Hemoglobin 12.8 g/dL (14.0-18.0); Mean Corpuscular Hemoglobin 33.4 pg (27.0-31.0); Mean Platelet Volume 8.6 fL (7.4-10.4); Platelet Count 281 thou/uL (130-400); Red Blood Cell (RBC) Count 3.82 mill/uL (4.70-6.10); White Blood Cell (WBC) Count 7.7 thou/uL (4.8-10.8)
[2021-01-09 05:21] LABS: Anion Gap 10 mmol/L (10-20); BUN (Urea Nitrogen) 14 mg/dL (8.4-25.7); CRP (Inflammatory) 0.98 mg/dL (= or < 0.5); Calc. Creatinine Clearance 161 mL/min (70-130); Calcium 8.7 mg/dL (7.8-10.44); Carbon Dioxide 30 mmol/L (23-31); Chloride 101 mmol/L (98-107); Glucose 108 mg/dL (80-115); Potassium 4.4 mmol/L (3.5-5.1); Sodium 137 mmol/L (136-145)
[2021-01-09] MEDS: Ascorbic Acid 500 mg Chewable Tablet PO SCH (07:51)
[2021-01-09] MEDS: Clopidogrel Bisulfate 75 MG TAB PO SCH (07:52)
[2021-01-09] MEDS: Divalproex Sodium DR 500 MG TAB PO SCH ×2 (07:52→20:05)
[2021-01-09] MEDS: Doxycycline 100 MG CAP PO SCH ×2 (07:52→20:06)
[2021-01-09] MEDS: Zinc Sulfate 220 MG CAP PO SCH (07:52)
[2021-01-09] MEDS: Dexamethasone 10 MG/ML VIAL SLOW IVP SCH (07:54)
[2021-01-09] MEDS: Timolol 0.5% Ophth Soln 5 ml Bottle EA EYE SCH (07:54)
[2021-01-09] MEDS: Enoxaparin Sodium 40 MG/0.4 ML SYRINGE SC SCH (07:54)
[2021-01-09] MEDS: hydrALAZINE 25 MG TAB PO SCH ×3 (07:55→20:05)
[2021-01-09] MEDS ORDERED: Enoxaparin Sodium 40 MG/0.4 ML SYRINGE SC SCH ×2 (09:00→21:00)
[2021-01-09] MEDS: Albuterol 200 PUFF (6.7GM INHALER) INH SCH ×3 (09:30→15:00)
[2021-01-09 14:02] VITALS: BMI 31.6
[2021-01-09] MEDS: Cholecalciferol 1,000 UNITS (25 MCG) TAB PO SCH (20:06)
[2021-01-10] MEDS: Albuterol 200 PUFF (6.7GM INHALER) INH SCH ×2 (00:29→00:30)
[2021-01-10] MEDS: hydrALAZINE 25 MG TAB PO SCH ×3 (08:39→21:40)
[2021-01-10] MEDS: Ascorbic Acid 500 mg Chewable Tablet PO SCH (08:39)
[2021-01-10] MEDS: Zinc Sulfate 220 MG CAP PO SCH (08:39)
[2021-01-10] MEDS: Dexamethasone 10 MG/ML VIAL SLOW IVP SCH (08:40)
[2021-01-10] MEDS: Clopidogrel Bisulfate 75 MG TAB PO SCH (08:40)
[2021-01-10] MEDS: Doxycycline 100 MG CAP PO SCH (08:40)
[2021-01-10] MEDS: Divalproex Sodium DR 500 MG TAB PO SCH ×2 (08:40→21:40)
[2021-01-10] MEDS: Timolol 0.5% Ophth Soln 5 ml Bottle EA EYE SCH (08:41)
[2021-01-10] MEDS ORDERED: Enoxaparin Sodium 40 MG/0.4 ML SYRINGE SC SCH (14:45)
[2021-01-10] MEDS: Cholecalciferol 1,000 UNITS (25 MCG) TAB PO SCH (21:40)
[2021-01-11] MEDS: Ascorbic Acid 500 mg Chewable Tablet PO SCH (09:59)
[2021-01-11] MEDS: Divalproex Sodium DR 500 MG TAB PO SCH ×2 (09:59→21:06)
[2021-01-11] MEDS: Clopidogrel Bisulfate 75 MG TAB PO SCH (09:59)
[2021-01-11] MEDS: Zinc Sulfate 220 MG CAP PO SCH (09:59)
[2021-01-11] MEDS: hydrALAZINE 25 MG TAB PO SCH ×3 (10:00→21:06)
[2021-01-11] MEDS: Enoxaparin Sodium 40 MG/0.4 ML SYRINGE SC SCH (10:01)
[2021-01-11] MEDS: Dexamethasone 10 MG/ML VIAL SLOW IVP SCH (10:02)
[2021-01-11] MEDS: Timolol 0.5% Ophth Soln 5 ml Bottle EA EYE SCH (10:02)
[2021-01-11] MEDS: Cholecalciferol 1,000 UNITS (25 MCG) TAB PO SCH (21:06)
[2021-01-12 08:38] LABS: #Lymphocytes 2.9 thou/uL (1.20-3.40); #Monocytes 0.9 thou/uL (0.11-0.59); #Neutrophils 6.1 thou/uL (1.40-6.50); %Basophils 0.2 % (0.0-1.0); %Eosinophils 0.4 % (0.0-10.0); %Lymphocytes 29.3 % (21.0-51.0); Hemoglobin 13.4 g/dL (14.0-18.0); Mean Corpuscular HGB CONC 35.2 g/dL (32.0-36.0); Mean Corpuscular Hemoglobin 35.7 pg (27.0-31.0); Mean Platelet Volume 8.7 fL (7.4-10.4); Platelet Count 276 thou/uL (130-400); RBC Distribution Width 12.6 % (11.5-14.5); Red Blood Cell (RBC) Count 3.74 mill/uL (4.70-6.10)
[2021-01-12 08:58] LABS: Anion Gap 14 mmol/L (10-20); BUN (Urea Nitrogen) 17 mg/dL (8.4-25.7); Calc. Creatinine Clearance 153 mL/min (70-130); Calcium 9.1 mg/dL (7.8-10.44); Carbon Dioxide 28 mmol/L (23-31); Chloride 95 mmol/L (98-107); Glucose 104 mg/dL (80-115); Potassium 5.7 mmol/L (3.5-5.1); Sodium 131 mmol/L (136-145)
[2021-01-12] MEDS: Enoxaparin Sodium 40 MG/0.4 ML SYRINGE SC SCH (09:10)
[2021-01-12] MEDS: Clopidogrel Bisulfate 75 MG TAB PO SCH (09:12)
[2021-01-12] MEDS: hydrALAZINE 25 MG TAB PO SCH ×3 (09:12→20:53)
[2021-01-12] MEDS: Divalproex Sodium DR 500 MG TAB PO SCH ×2 (09:12→20:54)
[2021-01-12] MEDS: Ascorbic Acid 500 mg Chewable Tablet PO SCH (09:12)
[2021-01-12] MEDS: Zinc Sulfate 220 MG CAP PO SCH (09:13)
[2021-01-12] MEDS: Dexamethasone 10 MG/ML VIAL SLOW IVP SCH (09:13)
[2021-01-12] MEDS: Timolol 0.5% Ophth Soln 5 ml Bottle EA EYE SCH (09:14)
[2021-01-12] MEDS: Cholecalciferol 1,000 UNITS (25 MCG) TAB PO SCH (20:53)
[2021-01-13 08:21] LABS: Anion Gap 9 mmol/L (10-20); BUN (Urea Nitrogen) 20 mg/dL (8.4-25.7); Calc. Creatinine Clearance 164 mL/min (70-130); Calcium 9.2 mg/dL (7.8-10.44); Carbon Dioxide 31 mmol/L (23-31); Chloride 96 mmol/L (98-107); Glucose 129 mg/dL (80-115); Potassium 4.4 mmol/L (3.5-5.1); Sodium 132 mmol/L (136-145)
[2021-01-13] MEDS: Dexamethasone 10 MG/ML VIAL SLOW IVP SCH (10:17)
[2021-01-13] MEDS: Enoxaparin Sodium 40 MG/0.4 ML SYRINGE SC SCH (10:17)
[2021-01-13] MEDS: hydrALAZINE 25 MG TAB PO SCH ×3 (10:18→22:05)
[2021-01-13] MEDS: Timolol 0.5% Ophth Soln 5 ml Bottle EA EYE SCH (10:18)
[2021-01-13] MEDS: Zinc Sulfate 220 MG CAP PO SCH (10:18)
[2021-01-13] MEDS: Clopidogrel Bisulfate 75 MG TAB PO SCH (10:18)
[2021-01-13] MEDS: Ascorbic Acid 500 mg Chewable Tablet PO SCH (10:18)
[2021-01-13] MEDS: Divalproex Sodium DR 500 MG TAB PO SCH ×2 (10:18→22:04)
[2021-01-13] MEDS: Cholecalciferol 1,000 UNITS (25 MCG) TAB PO SCH (22:04)
[2021-01-14] MEDS: Dexamethasone 10 MG/ML VIAL SLOW IVP SCH (10:47)
[2021-01-14] MEDS: Timolol 0.5% Ophth Soln 5 ml Bottle EA EYE SCH (10:48)
[2021-01-14] MEDS: hydrALAZINE 25 MG TAB PO SCH ×2 (10:52→15:36)
[2021-01-14] MEDS: Enoxaparin Sodium 40 MG/0.4 ML SYRINGE SC SCH (10:52)
[2021-01-14] MEDS: Ascorbic Acid 500 mg Chewable Tablet PO SCH (10:53)
[2021-01-14] MEDS: Clopidogrel Bisulfate 75 MG TAB PO SCH (10:53)
[2021-01-14] MEDS: Zinc Sulfate 220 MG CAP PO SCH (10:55)
[2021-01-14] MEDS: Divalproex Sodium DR 500 MG TAB PO SCH (10:55)
[2021-01-14] MEDS ORDERED: Aspirin 81 mg Enteric Coated Tablet PO SCH (15:00)
[2021-01-14 15:32] VITALS: BP 128/60; TEMP 97.4
[2021-01-15] MEDS ORDERED: Aspirin 81 mg Enteric Coated Tablet PO SCH (09:00)
== END 2021-01-14 16:37 | disposition home or self-care (01) | DRG 871 ==
LOC: ERS 06:14 → ERHOLD 09:17 → 2SW 12:56 → OBSVTOIN 12-28 11:33 → 3SE 01-11 01:24
PROVIDERS: ADMIT Internal Medicine; ATTEND Internal Medicine
PROC: 8E0ZXY6 Isolation (ICD-10-PCS; 2020-12-28)
PROC: XW033E5 Introduction of Remdesivir Anti-infective into Peripheral Vein, Percutaneous Approach, New Technology Group 5 (ICD-10-PCS; principal; 2020-12-29)
DX: A41.89 Other specified sepsis (principal); U07.1 COVID-19; J12.82 Pneumonia due to coronavirus disease 2019; J96.01 Acute respiratory failure with hypoxia; E87.1 Hypo-osmolality and hyponatremia; I48.92 Unspecified atrial flutter; E66.9 Obesity, unspecified; G40.909 Epilepsy, unspecified, not intractable, without status epilepticus; H40.9 Unspecified glaucoma; R94.5 Abnormal results of liver function studies; I08.1 Rheumatic disorders of both mitral and tricuspid valves; G93.89 Other specified disorders of brain; I48.0 Paroxysmal atrial fibrillation; E87.6 Hypokalemia; E83.42 Hypomagnesemia; Z68.31 Body mass index [BMI] 31.0-31.9, adult; Z91.81 History of falling; Z86.718 Personal history of other venous thrombosis and embolism; Z79.01 Long term (current) use of anticoagulants; Z86.73 Personal history of transient ischemic attack (TIA), and cerebral infarction without residual deficits
CPT/HCPCS: 36415; 70450; 71045; 72125; 80048; 80053; 82607; 82728; 82746; 83690; 83735; 84100; 84132; 84484; 85025; 86140; 93005; 93010; 93306; 94760; 96372; 96374; G0378; J0360; J0696; J1100; J1160; J1650; J2405; J3475; J3490; J7050

== ENCOUNTER 2023-03-26 10:35 | Outpatient (CLI) | payer MEDICARE | END 2023-03-26 10:36 | disposition home or self-care (01) | LOC: BICRAD 10:35 | PROVIDERS: ATTEND Family Medicine | DX: S09.90XA Unspecified injury of head, initial encounter (principal); S69.92XA Unspecified injury of left wrist, hand and finger(s), initial encounter; S60.352A Superficial foreign body of left thumb, initial encounter | CPT/HCPCS: 70150 ==